=== PATIENT | male | born 1950 | race Caucasian/White ===

== ENCOUNTER → 2021-09-09 00:31 | Outpatient (CLI) | payer MEDICARE, OTHER, SELFPAY ==
[2021-09-09 17:11] LABS: SARS-CoV-2 RNA PCR Negative
== END ==
PROVIDERS: PCP Student in an Organized Health Care Education/Training Program; Visit Provider Student in an Organized Health Care Education/Training Program
DX: R68.89 Other general symptoms and signs (principal); Z20.822 Contact with and (suspected) exposure to COVID-19
CPT/HCPCS: C9803; U0003; U0005